=== PATIENT | male | born 1960 | race Caucasian/White ===

== ENCOUNTER 2022-10-21 19:28 | Inpatient (IN) ==
[2022-10-21 20:31] LABS: Venous Bicarbonate HCO3 25.5 mmol/L (24-28)
[2022-10-21 20:41] LABS: ABS Basophils 0.1 10^3/ul (0-0.2); ABS Eosinophils 0.4 10^3/ul (0-0.6); ABS Lymphocytes 0.9 10^3/ul (1.0-4.8); ABS Monocytes 0.5 10^3/ul (0-0.8); ABS Neutrophils 3.5 10^3/ul (1.5-7.7); Eosinophil % 7.5 %; Hematocrit 29 % (42-52); Hemoglobin 9.1 g/dL (14.0-18.0); Lymphocyte % 16.8 %; Mean Corpuscular HGB Conc 31 g/dL (31-36); Mean Corpuscular Hemoglobin 29 pg (27-31); Mean Corpuscular Volume 93 fL (80-94); Platelet Count 150 10^3/uL (150-450); Red Blood Count 3.13 10^6 /uL (4.18-5.48); Red Cell Distribution Width 17 % (10-15); White Blood Count 5.5 10^3/uL (3.5-10.8)
[2022-10-21 21:13] LABS: Albumin 3.8 g/dL (3.2-5.2); Albumin/Globulin Ratio 1.4 (1-3); Calcium 8.6 mg/dL (8.6-10.3); Globulin 2.8 g/dL (2-4); Magnesium 2.2 mg/dL (1.9-2.7); Phosphorus 4.4 mg/dL (2.5-5.0); Potassium 5.3 mmol/L (3.5-5.0); Total Bilirubin 0.3 mg/dL (0.2-1.0); Total Protein 6.6 g/dL (6.4-8.9); eGFR CKD-EPI 9.5 (>60)
[2022-10-21] MEDS: cefTRIAXone 1 gm/50 mL D5W 1 GM/50 ML BAG IV SCH (22:42)
[2022-10-21] MEDS: Azithromycin 500 mg/250 ml NS 500 MG/250 ML BAG IVPB SCH (22:43)
[2022-10-21 23:09] LABS: C Reactive Protein 25.2 mg/L (<8.01)
[2022-10-21] MEDS ORDERED: Albuterol/Ipratropium NEB.SOL (2.5/0.5 MG) 3 ML NEB.SOLN INH PRN (23:13)
[2022-10-21] MEDS ORDERED: Albuterol HFA INHALER 8 gm MDI INH PRN (23:17)
[2022-10-22] MEDS ORDERED: Prochlorperazine 5 mg/ml 2 ml VIAL (10 mg) IV PRN (00:14)
[2022-10-22 05:19] LABS: ABS Basophils 0.1 10^3/ul (0-0.2); ABS Eosinophils 0.4 10^3/ul (0-0.6); ABS Monocytes 0.5 10^3/ul (0-0.8); Eosinophil % 8.2 %; Hematocrit 28 % (42-52); Hemoglobin 9.2 g/dL (14.0-18.0); Lymphocyte % 20.9 %; Mean Corpuscular HGB Conc 33 g/dL (31-36); Mean Corpuscular Hemoglobin 31 pg (27-31); Mean Corpuscular Volume 92 fL (80-94); Mean Platelet Volume 6.7 fL (7.4-10.4); Platelet Count 143 10^3/uL (150-450); Red Blood Count 3.02 10^6 /uL (4.18-5.48); Red Cell Distribution Width 17 % (10-15)
[2022-10-22] MEDS: Heparin 5000 UNITS/ML 1 mL VIAL SUBCUT SCH ×3 (05:22→21:15)
[2022-10-22 05:36] LABS: Calcium 8.7 mg/dL (8.6-10.3); Potassium 4.9 mmol/L (3.5-5.0)
[2022-10-22] MEDS: Mometasone/Formoter 100/5 MDI INH SCH ×2 (07:29→19:34)
[2022-10-22] MEDS ORDERED: Tiotropium Brom/Olodaterol MDI INH SCH (09:00)
[2022-10-22] MEDS ORDERED: Heparin 1,000 UNIT/ML 10 ml (10,000 UNITS) CATHLAB/DIALYSIS DIALYSIS ONE (09:15)
[2022-10-22] MEDS: Heparin 1,000 UNIT/ML 10 ml (10,000 UNITS) CATHLAB/DIALYSIS DIALYSIS PRN ×3 (10:45→12:50)
[2022-10-22 11:12] LABS: Hepatitis B Surface Antigen Nonreactive (Nonreactive)
[2022-10-22 11:17] LABS: Hepatitis B Core IgM Nonreactive (Nonreactive)
[2022-10-22 11:29] LABS: Hepatitis B Surface Ab Immune (Immune)
[2022-10-22] MEDS: Ondansetron 4 mg VIAL 2 MG/ML 2 ml VIAL IV PRN ×2 (13:37→23:12)
[2022-10-22] MEDS ORDERED: Albumin Human 25% 25 GM/100 ML BTL IV ONE (14:30)
[2022-10-22 17:44] LABS: Urine Appearance Cloudy; Urine Bilirubin Negative (Negative); Urine Blood 2+ (Negative); Urine Color Yellow; Urine Glucose Negative (Negative); Urine Ketones Negative (Negative); Urine Nitrite Negative (Negative); Urine Protein 1+(30 mg/dL) (Negative); Urine Specific Gravity 1.011 (1.002-1.030); Urine Urobilinogen Negative (Negative)
[2022-10-22 17:48] LABS: Urine Bacteria 1+ (Absent); Urine Red Blood Cell 3+(>10/hpf) (Absent); Urine Squamous Epithelial Cell Present (Absent); Urine White Blood Cell 3+(>20/hpf) (Absent)
[2022-10-22] MEDS: cefTRIAXone 1 gm/50 mL D5W 1 GM/50 ML BAG IV SCH (21:10)
[2022-10-22] MEDS: Azithromycin 500 mg/250 ml NS 500 MG/250 ML BAG IVPB SCH (22:48)
[2022-10-23] MEDS: Heparin 5000 UNITS/ML 1 mL VIAL SUBCUT SCH ×3 (05:53→21:37)
[2022-10-23] MEDS: SPIRIVA Respimat (tiotropium) 2.5 mcg/inh Inhaler INH SCH (07:24)
[2022-10-23] MEDS: Mometasone/Formoter 100/5 MDI INH SCH ×2 (07:32→19:29)
[2022-10-23 08:42] LABS: Folate 3.95 ng/mL (5.90-24.80)
[2022-10-23 13:19] LABS: Hepatitis B Surface Antigen Nonreactive (Nonreactive)
[2022-10-23 18:29] LABS: C Reactive Protein 15.23 mg/L (<8.01)
[2022-10-23] MEDS: cefTRIAXone 1 gm/50 mL D5W 1 GM/50 ML BAG IV SCH (21:32)
[2022-10-23] MEDS: Azithromycin 500 mg/250 ml NS 500 MG/250 ML BAG IVPB SCH (22:27)
[2022-10-23] MEDS: Ondansetron 4 mg VIAL 2 MG/ML 2 ml VIAL IV PRN (23:00)
[2022-10-24] MEDS: Heparin 5000 UNITS/ML 1 mL VIAL SUBCUT SCH ×3 (06:18→20:57)
[2022-10-24] MEDS: SPIRIVA Respimat (tiotropium) 2.5 mcg/inh Inhaler INH SCH (07:08)
[2022-10-24] MEDS: Mometasone/Formoter 100/5 MDI INH SCH ×2 (07:08→19:45)
[2022-10-24] MEDS: cefTRIAXone 1 gm/50 mL D5W 1 GM/50 ML BAG IV SCH (20:59)
[2022-10-24] MEDS: Azithromycin 500 mg/250 ml NS 500 MG/250 ML BAG IVPB SCH (21:41)
[2022-10-24] MEDS: Ondansetron 4 mg VIAL 2 MG/ML 2 ml VIAL IV PRN (21:45)
[2022-10-25] MEDS: Heparin 5000 UNITS/ML 1 mL VIAL SUBCUT SCH (05:19)
[2022-10-25 06:03] LABS: Calcium 8.8 mg/dL (8.6-10.3); eGFR CKD-EPI 11.4 (>60)
[2022-10-25] MEDS: Mometasone/Formoter 100/5 MDI INH SCH (07:50)
[2022-10-25] MEDS: SPIRIVA Respimat (tiotropium) 2.5 mcg/inh Inhaler INH SCH (07:57)
[2022-10-25 11:35] LABS: Rapid COVID-19 Molecular Undetected (Undetected)
[2022-10-25 11:49] VITALS: BP 146/78
[2022-10-25] MEDS ORDERED: Heparin 1,000 UNIT/ML 10 ml (10,000 UNITS) CATHLAB/DIALYSIS DIALYSIS PRN (16:58)
== END 2022-10-25 14:56 | DRG 193 ==
LOC: ED 19:28 → EDHOLD 19:28 → OBSVTOIN 22:02 → SUATTDRO 22:02 → MED 22:56
PROVIDERS: ADMIT Internal Medicine; ATTEND Internal Medicine